=== PATIENT | female | born 1940 | race Caucasian/White ===

== ENCOUNTER 2018-10-18 13:57 | Outpatient (CLI) | payer MEDICARE, OTHER ==
[2018-10-18] MEDS ORDERED: LEVO75TA PO ×2 (15:04)
[2018-10-18] MEDS ORDERED: CALC-534 PO (15:04)
[2018-10-18] MEDS ORDERED: LOSA100T14 PO (15:04)
[2018-10-18] MEDS ORDERED: PRAV20TA2 PO (15:04)
[2018-10-18] MEDS ORDERED: VIT1CAPS42 PO (15:04)
[2018-10-18] MEDS ORDERED: APIX5TAB PO (15:04)
[2018-10-18] MEDS ORDERED: ZOLP-413 PO (15:04)
[2018-10-18] MEDS ORDERED: METO25TA35 PO (15:04)
[2018-10-18] MEDS ORDERED: UBID100C41 PO (15:04)
[2018-10-18 15:30] LABS: BASOPHILS # (AUTO) 0.02 x10^3/uL (0-0.1); BASOPHILS % (AUTO) 0 % (0-1); EOSINOPHILS # (AUTO) 0.22 x10^3/uL (0-0.4); EOSINOPHILS % (AUTO) 4 % (1-7); LYMPHOCYTES # (AUTO) 1.36 x10^3/uL (1-3.4); LYMPHOCYTES % (AUTO) 23 % (22-44); MD NO; MEAN CORPUSCULAR HEMOGLOBIN 31.8 pg (27.0-34.8); MEAN CORPUSCULAR HGB CONC 33.3 g/dL (32.4-35.8); MEAN CORPUSCULAR VOLUME 95.4 fL (80-100); MEAN PLATELET VOLUME 9.1 fL (7.4-10.4); MONOCYTES # (AUTO) 0.45 x10^3/uL (0.2-0.8); MONOCYTES % (AUTO) 8 % (2-9); NEUTROPHILS # (AUTO) 3.93 x10^3/uL (1.8-6.8); NEUTROPHILS % (AUTO) 66 % (42-75); PLATELET COUNT 209 x10^3/uL (130-400); RED BLOOD COUNT 4.36 x10^6/uL (3.82-5.3); RED CELL DISTRIBUTION WIDTH 14.7 % (9.6-15.2)
[2018-10-18 15:34] LABS: MICROSCOPIC AUTO
[2018-10-18 15:41] LABS: ALANINE AMINOTRANSFERASE 15 U/L (12-78); ALBUMIN 3.9 g/dL (3.4-5.0); ANION GAP 9 mmol/L (5-15); CALCIUM 9.1 mg/dL (8.5-10.1); CHLORIDE 107 mmol/L (98-107); CREATININE 1.16 mg/dL (0.55-1.02)
[2018-10-18 15:43] LABS: ALKALINE PHOSPHATASE 89 U/L (45-117)
== END 2018-10-18 23:59 | disposition home or self-care (01) ==
LOC: STAR 13:57
PROVIDERS: ATTEND Urology
DX: N20.1 Calculus of ureter (principal); J43.9 Emphysema, unspecified; R94.31 Abnormal electrocardiogram [ECG] [EKG]
CPT/HCPCS: 36415; 71046; 80053; 81001; 85025; 87086; 93005

== ENCOUNTER 2018-10-22 10:30 | Day surgery (SDC) | payer MEDICARE, OTHER ==
[~2018-10-22] VITALS: Ht 177.8 cm; Wt 61.4 kg
[~2018-10-22 10:30] MED LIST: APIX5TAB PO; CALC-534 PO; LEVO75TA PO; LOSA100T14 PO; METO25TA35 PO; PRAV20TA2 PO; UBID100C41 PO; VIT1CAPS42 PO; ZOLP-413 PO
[2018-10-22] MEDS ORDERED: LACTATED RINGERS 1,000 ML IV SCH (11:02)
[2018-10-22 11:28] VITALS: BP 170/92
[2018-10-22] MEDS ORDERED: FENTANYL PF 100 MCG/2ML ONE (12:27)
[2018-10-22] MEDS ORDERED: MIDAZOLAM 1 MG/ML, 2ML ONE (12:28)
[2018-10-22] MEDS ORDERED: hydrALAzine 20 MG/ML, 1ML IV PRN (13:30)
[2018-10-22] MEDS ORDERED: LORazepam 2 MG/ML, 1ML IVPush PRN (13:30)
[2018-10-22] MEDS ORDERED: PROMETHAZINE 25 MG/ML, 1ML IV PRN (13:30)
[2018-10-22] MEDS ORDERED: MORPHINE SULFATE 4 MG/ML, 1ML IVPush PRN (13:30)
[2018-10-22] MEDS ORDERED: ACETAMINOPHEN 325 MG TABLET PO PRN (13:30)
[2018-10-22] MEDS ORDERED: FENTANYL PF 100 MCG/2ML IV PRN (13:30)
[2018-10-22] MEDS ORDERED: LABETALOL 5MG/ML, 20ML IV PRN (13:30)
[2018-10-22] MEDS ORDERED: CEFAZOLIN 1,000 MG ONE (14:43)
[2018-10-22] MEDS ORDERED: PROPOFOL 10 MG/ML, 20ML ONE (14:43)
[2018-10-22] MEDS ORDERED: PHENAZOPYRIDINE 100 MG TABLET PO PRN (16:00)
== END 2018-10-22 16:53 | disposition home or self-care (01) ==
LOC: OUT 10:30
PROVIDERS: ATTEND Urology
DX: N20.1 Calculus of ureter (principal); I10 Essential (primary) hypertension; E78.5 Hyperlipidemia, unspecified; E03.9 Hypothyroidism, unspecified; Z87.891 Personal history of nicotine dependence
CPT/HCPCS: 52356; C1758; C2617; J0690; J2250; J2704; J3010